=== PATIENT | male | born 2000 | race Two or more races ===

== ENCOUNTER 2021-08-04 22:39 | Emergency (ER) | payer OTHER ==
[~2021-08-04] VITALS: Ht 170.2 cm; Wt 63.5 kg
[2021-08-05] MEDS ORDERED: AMOX-CLAV 875-1 EACH PO (02:34)
[2021-08-05] MEDS ORDERED: KETO10TA2 PO (02:34)
== END 2021-08-05 04:07 | disposition home or self-care (01) ==
LOC: ER 22:39
DX: H72.91 Unspecified perforation of tympanic membrane, right ear (principal); H66.91 Otitis media, unspecified, right ear; B95.3 Streptococcus pneumoniae as the cause of diseases classified elsewhere; B37.89 Other sites of candidiasis; H92.21 Otorrhagia, right ear